=== PATIENT | male | born 1980 | race Caucasian/White ===

== ENCOUNTER → 2016-08-02 | Outpatient (CLI) | payer SELFPAY ==
--- NOTE | 2016-08-03 18:37 | DI ---
XR ANKLE COMPLETE MIN 3VW,08/02/2016 2:43 PM: Clinical History: Fracture of the left tibial plafond and Previous Exam: June 28, 2016 Findings: 3 views of the left tibia are obtained, and demonstrate screw and plate fixation of the distal left t ibia. Alignment is near-anatomic. Impression: Stable fixation of the left distal tibia. Healing left distal tibial fracture.
== END ==
LOC: ORTHO 14:52
PROVIDERS: ATTEND Orthopaedic Surgery
DX: S82.872E Displaced pilon fracture of left tibia, subsequent encounter for open fracture type I or II with routine healing (principal)
CPT/HCPCS: 73610